=== PATIENT | female | born 2000 | race Hispanic/Latino ===

== ENCOUNTER 2020-07-20 22:20 | Emergency (ER) | payer OTHER, SELFPAY ==
[~2020-07-20] VITALS: Ht 165.1 cm; Wt 67.9 kg
[2020-07-20 22:23] VITALS: BP 130/77
[2020-07-20] MEDS ORDERED: IBUP200C25 PO (22:28)
[2020-07-20] MEDS ORDERED: MAGIC MOUTHWASH SUSPENSION BTL SSP STA (23:01)
[2020-07-20] MEDS ORDERED: ACETAMINOPHEN TAB 650MG DOSE (2X325MG) PO ONE (23:05)
[2020-07-20] MEDS ORDERED: AUGMENTIN 875 MG TAB PO ONE (23:05)
[2020-07-20] MEDS ORDERED: IBUPROFEN 600MG TAB PO ONE (23:05)
[2020-07-20] MEDS ORDERED: AUGM875T28 PO (23:15)
[2020-07-20] MEDS ORDERED: HYDR-3713 PO (23:15)
[2020-07-20] MEDS ORDERED: MAGICMW SSP (23:15)
[2020-07-20] MEDS ORDERED: NORCO 5/325MG TABLET (BULK FOR ED) PO ONE (23:20)
== END 2020-07-20 23:30 | disposition home or self-care (01) ==
LOC: M ED 22:20
DX: K04.7 Periapical abscess without sinus (principal); K08.89 Other specified disorders of teeth and supporting structures

== ENCOUNTER 2020-09-29 01:48 | Emergency (ER) | payer OTHER ==
[~2020-09-29] VITALS: Ht 167.6 cm; Wt 70.8 kg
[~2020-09-29 01:48] MED LIST: AUGM875T28 PO; HYDR-3713 PO; IBUP200C25 PO; MAGICMW SSP
[2020-09-29 02:34] LABS: BASO % 0.5 % (0.0-1.0); EOS # 0.2 10^3/uL (0.0-0.5); EOS % 2.7 % (0.0-3.0); HEMATOCRIT 34.3 % (36.0-47.0); HEMOGLOBIN 10.1 g/dl (12.0-15.5); LYMPH # 2.2 10^3/uL (1.5-5.0); LYMPH % 35.8 % (24.0-44.0); MEAN CORPUSCULAR HEMOGLOBIN 23.1 pg (27.0-33.0); MEAN CORPUSCULAR HGB CONC 29.4 g/dl (32.0-36.5); MEAN CORPUSCULAR VOLUME 78.5 fl (80.0-96.0); MONO # 0.5 10^3/uL (0.0-0.8); MONO % 8.5 % (2.0-8.0); NEUTROPHILS # 3.3 10^3/uL (1.5-8.5); NEUTROPHILS % 52.5 % (36.0-66.0); PLATELET COUNT, AUTOMATED 238 10^3/uL (150-450); RED BLOOD COUNT 4.37 10^6/uL (4.00-5.40); WHITE BLOOD COUNT 6.3 10^3/uL (4.0-10.0)
[2020-09-29 03:07] LABS: BLOOD UREA NITROGEN 11 MG/DL (7-18); CALCIUM LEVEL 8.6 MG/DL (8.5-10.1); CARBON DIOXIDE LEVEL 26 MEQ/L (21-32); CHLORIDE LEVEL 108 MEQ/L (98-107); CREATININE FOR GFR 0.77 MG/DL (0.55-1.30); GLUCOSE, FASTING 94 MG/DL (70-100); POTASSIUM SERUM 3.9 MEQ/L (3.5-5.1); SODIUM LEVEL 140 MEQ/L (136-145)
[2020-09-29 03:08] LABS: HCG, SERUM QUALITATIVE NEGATIVE (NEGATIVE)
[2020-09-29 04:12] LABS: CHLAMYDIA DNA AMPLIFICATION NEGATIVE (NEGATIVE); GC DNA AMPLIFICATION NEGATIVE (NEGATIVE)
[2020-09-29] MEDS ORDERED: NS 1,000 ML IV ONE (06:30)
--- NOTE | 2020-09-29 06:53 | REPVR ---
PROCEDURE INFORMATION: Exam: XR Abdomen Exam date and time: 09/29/2020 4:35 AM Age: 20 years old Clinical indication: Other: Examine gas pattern/ abdominal distention TECHNIQUE: Imaging protocol: XR of the abdomen. Views: 2 Views. Upright and supine views. COMPARISON: No relevant prior studies available. FINDINGS: Gastrointestinal tract: There is moderate right colonic stool burden. There is nonspecific gaseous distention of the descending and sigmoid colon. No abnormally dilated small bowel loops and no air-fluid level seen. Intraperitoneal space: Normal. No free air. Organs: The liver shadow appear to be enlarged at 18.3 centimetres. Bones/joints: Unremarkable for age. IMPRESSION: 1. No radiographic evidence of bowel obstruction. 2. Moderate right colonic stool burden. 3. Possible hepatomegaly. Electronically signed by: Wilson Hernandez On 09/29/2020 06:53:03 AM
[2020-09-29 07:10] VITALS: BP 112/71
== END 2020-09-29 07:10 | disposition home or self-care (01) ==
LOC: M ED 01:48
DX: N93.8 Other specified abnormal uterine and vaginal bleeding (principal)

== ENCOUNTER 2020-12-23 19:12 | Emergency (ER) | payer OTHER ==
[~2020-12-23] VITALS: Ht 167.6 cm; Wt 68.7 kg
[2020-12-23] MEDS ORDERED: PRENTAB7 PO (19:18)
[2020-12-23 22:09] LABS: BASO % 0.4 % (0.0-1.0); EOS # 0.1 10^3/uL (0.0-0.5); EOS % 1.1 % (0.0-3.0); HEMATOCRIT 36.3 % (36.0-47.0); LYMPH # 1.8 10^3/uL (1.5-5.0); LYMPH % 17.5 % (24.0-44.0); MEAN CORPUSCULAR HEMOGLOBIN 23.5 pg (27.0-33.0); MEAN CORPUSCULAR HGB CONC 30.3 g/dl (32.0-36.5); MEAN CORPUSCULAR VOLUME 77.6 fl (80.0-96.0); MONO # 0.7 10^3/uL (0.0-0.8); MONO % 6.6 % (2.0-8.0); NEUTROPHILS # 7.4 10^3/uL (1.5-8.5); PLATELET COUNT, AUTOMATED 217 10^3/uL (150-450); RED BLOOD COUNT 4.68 10^6/uL (4.00-5.40)
[2020-12-23 22:10] LABS: APPEARANCE, URINE CLEAR (CLEAR); BACTERIA, URINE AUTO NEGATIVE (NEGATIVE); BILIRUBIN, URINE AUTO NEGATIVE (NEGATIVE); BLOOD, URINE BLOOD 1+ (NEGATIVE); COLOR, URINE STRAW (YELLOW); GLUCOSE, URINE (UA) AUTO NEGATIVE (NEGATIVE); KETONE, URINE AUTO NEGATIVE (NEGATIVE); LEUKOCYTE ESTERASE, URINE AUTO NEGATIVE (NEGATIVE); MUCUS, URINE SMALL (NEGATIVE); NITRITE, URINE AUTO NEGATIVE (NEGATIVE); PROTEIN, URINE AUTO NEGATIVE (NEGATIVE); RBC, URINE AUTO 1 /HPF (0-3); SPECIFIC GRAVITY URINE AUTO 1.004 (1.002-1.035); SQUAMOUS EPITHELIAL CELL UR AU 1 /HPF (0-6); UROBILINOGEN, URINE AUTO 0.2 mg/dL (0.0-2.0); WBC, URINE AUTO 1 /HPF (0-3)
--- NOTE | 2020-12-23 23:34 | REPVR ---
PROCEDURE INFORMATION: Exam: US First Trimester, Transabdominal Exam date and time: 12/23/2020 10:41 PM Age: 20 years old Clinical indication: Lmp or gestational age (in weeks): 09/22/20; Antepartum complications; Bleeding; ; Additional info: Vag bleeding, 9wks preg TECHNIQUE: Imaging protocol: Real-time transabdominal obstetrical ultrasound of the maternal pelvis and a first trimester , less than 14 weeks 0 days, with image documentation. COMPARISON: No relevant prior studies available. FINDINGS: Last menstrual period: 10/22/2020 Gestation: There is a single live intrauterine gestation, with a single gestational sac and a 5 mm in diameter yolk sac. Embryonic/ heart rate: 181 bpm Extra-embryonic membranes/Placenta: There is a small subchorionic hematoma measuring 2 cm x 0.5 cm x 1.7 cm that surrounds less than 20% of the circumference of the gestational sac. Amniotic fluid: Amniotic fluid is normal for gestational age. BIOMETRY: Gestational age (AUA): 8 weeks 6 days Gestational age (LMP): 8 weeks 6 days Estimated due date (AUA): 07/29/2021 Estimated due date (LMP): 07/29/2021 [place]-Rump length: 21.78 mm MATERNAL: Uterus: Unremarkable. Cervix: Closed. Right adnexa: The right ovary measures 3.1 cm x 1.8 cm x 2.4 cm and contains a 1.2 cm x 0.8 cm x 0.9 cm follicular cyst. The arterial and venous color Doppler flow and spectral waveforms within the right ovary are within normal limits, without evidence for right ovarian torsion. Left adnexa: The left ovary is normal in appearance. No left ovarian cyst or left adnexal mass is noted. The left ovary measures 3.4 cm x 1.9 cm x 1.9 cm. The arterial and venous color Doppler flow and spectral waveforms within the left ovary are within normal limits, without evidence for left ovarian torsion. Intraperitoneal space: No free fluid is seen from the images obtained. IMPRESSION: 1. Single live intrauterine with a gestational age x today's ultrasound of 8 weeks 6 days and estimated due date on 07/29/2021. A second trimester obstetrical ultrasound is suggested at 19-20 weeks gestation for a detailed anatomical survey. 2. Small subchorionic hematoma measuring 2 cm x 0.5 cm x 1.7 cm that surrounds less than 20% of the circumference of the gestational sac. Electronically signed by: Giovanny Pate On 12/23/2020 23:33:31 PM
[2020-12-23 23:55] VITALS: BP 115/71
== END 2020-12-23 23:58 | disposition home or self-care (01) ==
LOC: M ED 19:12
DX: O26.851 Spotting complicating pregnancy, first trimester (principal); O20.8 Other hemorrhage in early pregnancy; Z3A.08 8 weeks gestation of pregnancy

== ENCOUNTER 2020-12-28 19:39 | Emergency (ER) | payer OTHER ==
[~2020-12-28] VITALS: Ht 165.1 cm; Wt 67.7 kg
[~2020-12-28 19:39] MED LIST changes: +PRENTAB7 PO
[2020-12-28 21:24] LABS: BASO % 0.2 % (0.0-1.0); EOS # 0.1 10^3/uL (0.0-0.5); EOS % 1.5 % (0.0-3.0); HEMATOCRIT 34.7 % (36.0-47.0); HEMOGLOBIN 10.6 g/dl (12.0-15.5); LYMPH # 1.3 10^3/uL (1.5-5.0); LYMPH % 15.9 % (24.0-44.0); MEAN CORPUSCULAR HEMOGLOBIN 23.5 pg (27.0-33.0); MEAN CORPUSCULAR HGB CONC 30.5 g/dl (32.0-36.5); MEAN CORPUSCULAR VOLUME 76.9 fl (80.0-96.0); MONO # 0.6 10^3/uL (0.0-0.8); MONO % 7.5 % (2.0-8.0); NEUTROPHILS % 74.5 % (36.0-66.0); PLATELET COUNT, AUTOMATED 238 10^3/uL (150-450); RED BLOOD COUNT 4.51 10^6/uL (4.00-5.40)
[2020-12-28 21:28] LABS: APPEARANCE, URINE HAZY (CLEAR); BACTERIA, URINE AUTO NEGATIVE (NEGATIVE); BILIRUBIN, URINE AUTO NEGATIVE (NEGATIVE); BLOOD, URINE BLOOD 1+ (NEGATIVE); COLOR, URINE YELLOW (YELLOW); GLUCOSE, URINE (UA) AUTO NEGATIVE (NEGATIVE); KETONE, URINE AUTO 1+ mg/dL (NEGATIVE); LEUKOCYTE ESTERASE, URINE AUTO NEGATIVE (NEGATIVE); MUCUS, URINE SMALL (NEGATIVE); NITRITE, URINE AUTO NEGATIVE (NEGATIVE); PROTEIN, URINE AUTO 1+ mg/dL (NEGATIVE); RBC, URINE AUTO 1 /HPF (0-3); SPECIFIC GRAVITY URINE AUTO 1.019 (1.002-1.035); SQUAMOUS EPITHELIAL CELL UR AU 2 /HPF (0-6); UROBILINOGEN, URINE AUTO 0.2 mg/dL (0.0-2.0); WBC, URINE AUTO 2 /HPF (0-3)
[2020-12-28 22:00] LABS: BLOOD UREA NITROGEN 8 MG/DL (7-18); CALCIUM LEVEL 8.6 MG/DL (8.5-10.1); CARBON DIOXIDE LEVEL 23 MEQ/L (21-32); CHLORIDE LEVEL 107 MEQ/L (98-107); CREATININE FOR GFR 0.65 MG/DL (0.55-1.30); GLUCOSE, FASTING 80 MG/DL (70-100); HCG, SERUM QUANTITATIVE 86965 MIU/ML; POTASSIUM SERUM 3.6 MEQ/L (3.5-5.1); SODIUM LEVEL 138 MEQ/L (136-145)
--- NOTE | 2020-12-28 22:36 | REPVR ---
PROCEDURE INFORMATION: Exam: US First Trimester, Transabdominal Exam date and time: 12/28/2020 10:18 PM Age: 20 years old Clinical indication: Lmp or gestational age (in weeks): 9w 4d; Other: Vaginal bleedin g; ; Additional info: Heavier bleeding, known subchorionic hemorrhage, 9w6d TECHNIQUE: Imaging protocol: Real-time transabdominal obstetrical ultrasound of the maternal pelvis and a first trimester , less than 14 weeks 0 days, with image documentation. COMPARISON: 1ST TRIMESTER US 12/23/2020 10:28 PM FINDINGS: Gestation: Gestational sac within the uterus which contains a yolk sac and pole. Embryonic/ heart rate: heartbeat of 176 bpm. Extra-embryonic membranes/Placenta: Trace subchorionic hemorrhage measuring 23 x 4 x 18 mm. Amniotic fluid: Amniotic fluid is normal for gestational age. BIOMETRY: [place]-Rump length: The crown-rump length measures 2.7 cm suggesting an age of 9 weeks 4 days. The EDC is 07/29/2021. MATERNAL: Uterus: Unremarkable. Cervix: Unremarkable. Right adnexa: The right ovary is not seen. Left adnexa: The left ovary is not seen. Intraperitoneal space: No intraperitoneal free fluid. IMPRESSION: 1. Trace subchorionic hemorrhage which is similar to 12/23/2020 measuring 23 x 4 x 18 mm. 2. Single live intrauterine gestation with an estimated age of 9 weeks 4 days. The EDC is 07/29/2021 with adequate interval growth since the prior study. Electronically signed by: Case Quevedo On 12/28/2020 22:36:02 PM
[2020-12-29 00:45] VITALS: BP 104/55
== END 2020-12-29 00:47 | disposition home or self-care (01) ==
LOC: M ED 19:39
DX: O20.8 Other hemorrhage in early pregnancy (principal); Z3A.09 9 weeks gestation of pregnancy; O99.011 Anemia complicating pregnancy, first trimester; Z79.899 Other long term (current) drug therapy

== ENCOUNTER → 2021-03-14 | Outpatient (CLI) | payer OTHER ==
--- NOTE | 2021-03-14 19:31 | REP ---
INDICATION: ANATOMY. COMPARISON: None. TECHNIQUE: Transabdominal scanning. FINDINGS: Scanning demonstrates a viable single intrauterine gestation in a cephalic lie. motion is observed and heart rate is recorded at 147 beats per minute. A fundal, grade zero placenta is seen without evidence of previa. Amniotic fluid is subjectively normal. Closed cervical length is measured at 3.6 cm transabdominally. No extrauterine abnormality is observed. There has been appropriate interval growth. No anomaly is seen. The following anatomic structures are identified and felt to be sonographically unremarkable: cranium, choroid plexus, cavum, cerebellum and posterior fossa, face and profile, lungs, right ventricular outflow tract, diaphragm, left-sided stomach, abdominal wall cord insertion, three-vessel umbilical cord, kidneys and bladder, spine, and upper and lower extremities. The four-chamber view and left ventricular outflow tract are not optimally visualized due to position. Biometry chart: BPD 5.0 cm; 21 weeks 0 days Head circumference 18 point cm; 20 weeks 4 days Abdominal circumference 15.4 cm; 20 weeks 4 days Femur length 3.5 cm; 20 weeks 6 days Humeral length 3.2 cm; 20 weeks 4 days HC/AC ratio normal 1.18 Cephalic index normal 0.76 Estimated weight 373 grams, 0 pounds 13 ounces, 64 percentile for 20 weeks 3 days. IMPRESSION: Viable single intrauterine gestation at 20 weeks 5 days by today's composite sonographic criteria. Expected gestational age estimate based on prior sonography is 20 weeks is 3 days. MYAH by prior sonography 07/29/2021. No anomaly is noted but the exam is incomplete and the patient should be re-scanned later in the 2nd trimester to better image the four-chamber view and left ventricular outflow tract.. <Electronically signed by Red Goldman > 03/14/[id number]
== END ==
LOC: M RAD 14:53
PROVIDERS: ATTEND Obstetrics & Gynecology
DX: Z36.89 Encounter for other specified antenatal screening (principal); Z3A.20 20 weeks gestation of pregnancy

== ENCOUNTER 2021-07-12 15:18 | Outpatient (CLI) | payer OTHER ==
[~2021-07-12] VITALS: Ht 167.6 cm; Wt 74.0 kg
[2021-07-12 15:43] VITALS: BP 119/77
[2021-07-12] MEDS ORDERED: HOME MED LIST COMPLETE! XX SCH (15:55)
== END 2021-07-12 17:00 | disposition home or self-care (01) ==
LOC: M LDO 15:18
PROVIDERS: ATTEND Advanced Practice Midwife
DX: O47.1 False labor at or after 37 completed weeks of gestation (principal); Z3A.37 37 weeks gestation of pregnancy
CPT/HCPCS: 59025; 76815; G0378; G0463

== ENCOUNTER 2021-07-30 01:14 | Outpatient (CLI) | payer OTHER ==
[~2021-07-30] VITALS: Ht 167.6 cm; Wt 76.6 kg
[2021-07-30] MEDS ORDERED: HOME MED LIST COMPLETE! XX SCH (01:30)
[2021-07-30 01:33] VITALS: BP 119/75
[2021-07-30] MEDS ORDERED: ONDANSETRON 4MG TAB PO ONE (02:15)
[2021-07-30] MEDS ORDERED: LR 1,000 ML IV ONE (02:35)
[2021-07-30 03:28] VITALS: BP 121/76
== END 2021-07-30 03:56 | disposition home or self-care (01) ==
LOC: M LDO 01:14
PROVIDERS: ATTEND Obstetrics & Gynecology
DX: O21.2 Late vomiting of pregnancy (principal); Z3A.40 40 weeks gestation of pregnancy; O48.0 Post-term pregnancy; O99.613 Diseases of the digestive system complicating pregnancy, third trimester; K59.09 Other constipation; O99.343 Other mental disorders complicating pregnancy, third trimester; F41.9 Anxiety disorder, unspecified; F32.A Depression, unspecified
CPT/HCPCS: 59025; 96360; G0463

== ENCOUNTER 2021-07-30 16:30 | Inpatient (IN) | payer OTHER ==
[2021-07-30] VITALS (21 sets, daily range): BP systolic 102–148; BP diastolic 59–83
[~2021-07-30] VITALS: Ht 167.6 cm; Wt 76.2 kg
[2021-07-30] MEDS ORDERED: HOME MED LIST COMPLETE! XX SCH (17:05)
[2021-07-30] MEDS ORDERED: OXYTOCIN DRIP 30 UNITS in IV 1 EA IV PRN ×4 (17:35)
[2021-07-30] MEDS: LR 1,000 ML IV SCH ×2 (17:42→19:43)
[2021-07-30 18:01] LABS: HEMOGLOBIN 10.3 g/dl (12.0-15.5); MEAN CORPUSCULAR HEMOGLOBIN 22.2 pg (27.0-33.0); MEAN CORPUSCULAR HGB CONC 29.4 g/dl (32.0-36.5); MEAN CORPUSCULAR VOLUME 75.4 fl (80.0-96.0); PLATELET COUNT, AUTOMATED 203 10^3/uL (150-450); RED BLOOD COUNT 4.64 10^6/uL (4.00-5.40); WHITE BLOOD COUNT 12.3 10^3/uL (4.0-10.0)
[2021-07-30] MEDS ORDERED: FENTANYL 2MCG/ML ROPIVACAINE 0.2% IN 0.9% NACL 100ML IVBAG As Ordered ONE (18:54)
[2021-07-30] MEDS ORDERED: ePHEDrine SULFATE 25 MG/5 ML(5MG/ML) SYRINGE IV PRN (19:05)
[2021-07-30] MEDS ORDERED: REFRIGERATOR IV KEYS XX PRN (19:05)
[2021-07-30] MEDS ORDERED: NALOXONE INJ 0.4MG/1ML VIAL (J2310 PER 1MG) IV PRN (19:05)
[2021-07-30] MEDS ORDERED: diphenhydrAMINE 50MG/ML VIAL (J1200) IV PRN (19:05)
[2021-07-30] MEDS ORDERED: EPIDURAL/PCA KEYS XX PRN (19:05)
[2021-07-30] MEDS ORDERED: LACTATED RINGER'S 1000 ML IV PRN (19:05)
[2021-07-30] MEDS ORDERED: EPIDURAL COMMENT XX SCH (19:05)
[2021-07-30] MEDS ORDERED: ONDANSETRON 4MG/2ML VIAL IV PRN (19:05)
[2021-07-30] MEDS ORDERED: FENTANYL/ROPIVACAINE/NACL BAG 100 ML EPIDURAL SCH (19:05)
[2021-07-31] VITALS (12 sets, daily range): BP systolic 110–167; BP diastolic 57–100
[2021-07-31 00:51] LABS: CORD GAS ABE A -7.5; CORD GAS ABE V -8.8; CORD GAS HCO3 A 20.9 MEQ/L; CORD GAS HCO3 V 16.1 MEQ/L; CORD GAS O2 SAT A 15.8 %; CORD GAS O2 SAT V 60.9 %; CORD GAS PCO2 A 53.8 mmHg; CORD GAS PCO2 V 32.4 mmHg; CORD GAS PH A 7.208 UNITS; CORD GAS PH V 7.315 UNITS; CORD GAS PO2 A 12.3 mmHg; CORD GAS PO2 V 26.9 mmHg; CORD GAS SBC A 16.7 MEQ/L; CORD GAS SBC V 16.7 MEQ/L; CORD GAS TCO2 A 22.6 MEQ/L; CORD GAS TCO2 V 17.1 MEQ/L
[2021-07-31] MEDS ORDERED: MEASLES,MUMPS,RUBELLA VACCINE INJ (MMR-II) (90707) SC SCH (01:15)
[2021-07-31] MEDS ORDERED: METHYLERGONOVINE MALEATE 0.2 MG TAB PO PRN (01:15)
[2021-07-31] MEDS ORDERED: RHOGAM 300 MCG (1500 IU) INJ (J2790) IM SCH (01:15)
[2021-07-31] MEDS ORDERED: PROMETHAZINE 25 MG TAB PO PRN (01:15)
[2021-07-31] MEDS ORDERED: LR 1,000 ML IV SCH (01:15)
[2021-07-31] MEDS ORDERED: ONDANSETRON 4MG/2ML VIAL IV PRN (01:15)
[2021-07-31] MEDS ORDERED: DIBUCAINE 1% OINTMENT 30GM TOP PRN (01:15)
[2021-07-31] MEDS: DOCUSATE SODIUM 100MG CAPSULE PO SCH ×2 (09:39→20:06)
[2021-07-31] MEDS: PRENATAL VITAMINS CHEWABLE TABLET PO SCH (09:39)
[2021-07-31] MEDS: ACETAMINOPHEN 500 MG TAB PO SCH ×4 (09:47→17:41)
[2021-07-31] MEDS: IBUPROFEN 800 MG TAB PO SCH ×3 (09:48→22:04)
[2021-08-01] MEDS: IBUPROFEN 800 MG TAB PO SCH ×3 (05:04→22:03)
[2021-08-01] MEDS: ACETAMINOPHEN 500 MG TAB PO SCH ×4 (05:04→18:27)
[2021-08-01 06:00] VITALS: BP 118/72
[2021-08-01 07:15] LABS: HEMATOCRIT 27.8 % (36.0-47.0); MEAN CORPUSCULAR HEMOGLOBIN 22.3 pg (27.0-33.0); MEAN CORPUSCULAR HGB CONC 29.5 g/dl (32.0-36.5); MEAN CORPUSCULAR VOLUME 75.7 fl (80.0-96.0); PLATELET COUNT, AUTOMATED 167 10^3/uL (150-450); RED BLOOD COUNT 3.67 10^6/uL (4.00-5.40); WHITE BLOOD COUNT 11.9 10^3/uL (4.0-10.0)
[2021-08-01 07:18] LABS: HEMOGLOBIN 8.2 g/dl (12.0-15.5)
[2021-08-01] MEDS: DOCUSATE SODIUM 100MG CAPSULE PO SCH ×2 (08:09→21:09)
[2021-08-01] MEDS: PRENATAL VITAMINS CHEWABLE TABLET PO SCH (08:10)
[2021-08-01 18:00] VITALS: BP 124/84
[2021-08-02] MEDS: ACETAMINOPHEN 500 MG TAB PO SCH ×2 (00:43→05:40)
[2021-08-02] MEDS: IBUPROFEN 800 MG TAB PO SCH (05:40)
[2021-08-02] MEDS ORDERED: COLA100C5 PO (05:43)
[2021-08-02] MEDS ORDERED: IBUP80TA PO (05:43)
[2021-08-02] MEDS ORDERED: ACET-683 PO (05:43)
[2021-08-02] MEDS ORDERED: PRENCHW PO (05:43)
[2021-08-02 06:00] VITALS: BP 116/75
[2021-08-02] MEDS: DOCUSATE SODIUM 100MG CAPSULE PO SCH (09:23)
[2021-08-02] MEDS: PRENATAL VITAMINS CHEWABLE TABLET PO SCH (09:23)
== END 2021-08-02 12:10 | disposition home or self-care (01) | DRG 807 ==
LOC: M LDO 16:30 → M LDI 18:03 → M OBS 07-31 02:41
PROVIDERS: ADMIT Obstetrics & Gynecology; ATTEND Obstetrics & Gynecology
PROC: 10E0XZZ Delivery of Products of Conception, External Approach (ICD-10-PCS; principal; 2021-07-31)
PROC: 0HQ9XZZ Repair Perineum Skin, External Approach (ICD-10-PCS; 2021-07-31)
DX: O69.81X0 Labor and delivery complicated by cord around neck, without compression, not applicable or unspecified (principal); Z37.0 Single live birth; Z3A.40 40 weeks gestation of pregnancy; O99.824 Streptococcus B carrier state complicating childbirth; O70.0 First degree perineal laceration during delivery; O99.02 Anemia complicating childbirth; D64.9 Anemia, unspecified

== ENCOUNTER 2021-09-25 22:25 | Emergency (ER) | payer OTHER ==
[~2021-09-25] VITALS: Ht 167.6 cm; Wt 66.7 kg
[2021-09-25 22:25] VITALS: BP 114/76
[~2021-09-25 22:25] MED LIST changes: +ACET-683 PO; +COLA100C5 PO; +IBUP80TA PO; +PRENCHW PO
== END 2021-09-25 22:48 | disposition left against medical advice (07) ==
LOC: M ED 22:25
DX: Z53.21 Procedure and treatment not carried out due to patient leaving prior to being seen by health care provider (principal)